=== PATIENT | male | born 1995 | race Caucasian/White ===

== ENCOUNTER 2016-12-30 18:20 | Emergency (ER) | payer BC ==
[~2016-12-30] VITALS: Ht 181.6 cm; Wt 127.0 kg
--- NOTE | ~2016-12-30 | CR141 ---
[facility] A Service of [facility] RADIOLOGY TEXT RESULTS PATIENT: KASEY WADE LOCATION: CFTX : [birth year] UNIT #: [id number] AGE: [address]: MODESTO ANTHONY APRN SEX: M ORDER DR: [id number] [facility] [address] [place], [place] [address] [id number] E MR#: [id number] Acc #: [id number] NAME: KASEY WADE : 1995 SEX: M STUDY DATE/TIME: 12/30/2016 19:34 UNIT: [facility] ROOM: STUDY DESCRIPTION: CR Hand Min 3 Views Lt Attending Physician: [place] Anthony Aprn Ordering Physician: [place] Anthony Aprn Primary Care Physician: Primary Care Physician No MEDICAL IMAGING REPORT This report is preliminary unless electronic signature is present EXAM Left hand 3 views HISTORY Punched wall yesterday. Pain fourth and fifth digits. FINDINGS Three views of the left hand demonstrates no fracture, dislocation, arthritic or inflammatory change. Soft tissues unremarkable. IMPRESSION Negative left hand. Dictated by... Janeen Hall M.D. THIS IS AN ELECTRONICALLY VERIFIED REPORT Janeen Hall M.D. at 12/31/2016 2:32 PM DVEAN/kathleen TD: 12/31/2016 06:53 JOB #: [id number] MEDICAL IMAGING REPORT Page 1 of 1 COPY
[~2016-12-30 18:20] MED LIST: IBUPROFEN PO; NO MEDICATIONS; VICODIN 5/500 T1 TAB PO; ZITHROMAX PO
== END 2016-12-30 20:40 | disposition home or self-care (01) ==
LOC: CFTX 18:20 → EDSEX 18:20 → CED 18:20 → CFTX 20:37
DX: S60.222A Contusion of left hand, initial encounter (principal); F17.200 Nicotine dependence, unspecified, uncomplicated; Z79.899 Other long term (current) drug therapy; Z91.030 Bee allergy status; W22.01XA Walked into wall, initial encounter; Y92.009 Unspecified place in unspecified non-institutional (private) residence as the place of occurrence of the external cause
CPT/HCPCS: 29280; 73130; 99283